=== PATIENT | female | born 1980 | race Caucasian/White ===

== ENCOUNTER 2020-08-15 10:10 | Emergency (ER) | payer SELFPAY ==
[2020-08-15 10:59] LABS: #Basophils 0.2 thou/uL (0.0-0.2); #Eosinphils 0.2 thou/uL (0.0-0.7); #Lymphocytes 2.7 thou/uL (1.20-3.40); #Monocytes 0.5 thou/uL (0.11-0.59); #Neutrophils 4.6 thou/uL (1.40-6.50); %Basophils 1.9 % (0.0-1.0); %Eosinophils 2.2 % (0.0-10.0); %Lymphocytes 33.2 % (21.0-51.0); %Monocytes 6.2 % (0.0-10.0); %Neutrophils 56.5 % (42.0-75.0); Mean Corpuscular HGB CONC 33.9 g/dL (32.0-36.0); Mean Corpuscular Hemoglobin 32.6 pg (27.0-31.0); Mean Corpuscular Volume 96.2 fL (78.0-98.0); Mean Platelet Volume 8.6 fL (7.4-10.4); Platelet Count 231 thou/uL (130-400); RBC Distribution Width 12.1 % (11.5-14.5); White Blood Cell (WBC) Count 8.2 thou/uL (4.8-10.8)
[2020-08-15 11:25] LABS: ALT (SGPT) 16 U/L (8-55); AST (SGOT) 16 U/L (5-34); Albumin 4.2 g/dL (3.5-5.0); Alkaline Phosphatase 82 U/L (40-110); Anion Gap 13 mmol/L (10-20); BUN (Urea Nitrogen) 13 mg/dL (7.0-18.7); Bilirubin, Total 0.3 mg/dL (0.2-1.2); Calc. Creatinine Clearance 0 mL/min (70-130); Carbon Dioxide 23 mmol/L (22-29); Chloride 108 mmol/L (98-107); Globulin 2.6 g/dL (2.4-3.5); Glucose 96 mg/dL (70-105); Potassium 4.1 mmol/L (3.5-5.1); Protein, Total 6.8 g/dL (6.0-8.3); Sodium 140 mmol/L (136-145)
[2020-08-15] MEDS ORDERED: Famotidine/PF 20 mg/2ml Vial ONE (11:45)
[2020-08-15] MEDS ORDERED: methylPREDNISolone Sod Succ/PF 125 MG/2 ML VIAL ONE (11:45)
[2020-08-15] MEDS ORDERED: diphenhydrAMINE 50 MG/ML VIAL ONE (11:45)
== END 2020-08-15 13:17 | disposition home or self-care (01) ==
LOC: ERS 10:10
DX: R06.02 Shortness of breath (principal); R11.0 Nausea; R07.89 Other chest pain; T80.62XA Other serum reaction due to vaccination, initial encounter; T50.Z95A Adverse effect of other vaccines and biological substances, initial encounter; E03.9 Hypothyroidism, unspecified; Z86.73 Personal history of transient ischemic attack (TIA), and cerebral infarction without residual deficits; Z79.899 Other long term (current) drug therapy
CPT/HCPCS: 36415; 71045; 80053; 84484; 85025; 93005; 94760; 96374; 96375; J1200; J2930; S0028

== ENCOUNTER 2021-09-26 11:50 | Day surgery (SDC) | payer OTHER ==
[2021-09-23 12:18] VITALS: BMI 38.2
[2021-09-26] MEDS ORDERED: Ketorolac Tromethamine 30 MG/ML VIAL ONE ×2 (12:18→16:57)
[2021-09-26] MEDS ORDERED: Acetaminophen 500 MG TAB ONE (12:18)
[2021-09-26] MEDS ORDERED: Bupivacaine 0.25% 10 ML VIAL ONE (15:27)
[2021-09-26] MEDS ORDERED: EPINEPHrine 1 MG/ML AMP ONE (15:27)
[2021-09-26] MEDS ORDERED: Midazolam HCl 2 mg/2 ml Vial ONE ×2 (16:24→16:39)
[2021-09-26] MEDS ORDERED: Lidocaine 1% w/Epinephrine 1:100K 20 ML VIAL ONE (16:32)
[2021-09-26] MEDS ORDERED: Bupivacaine PF 0.5% 30 ML VIAL ONE (16:32)
[2021-09-26] MEDS ORDERED: Ketamine 50 MG/ML (10ML VIAL) ONE (16:39)
[2021-09-26] MEDS ORDERED: Fentanyl 100 MCG/2 ML VIAL ONE (16:39)
[2021-09-26] MEDS ORDERED: HYDROmorphone 2 MG/ML VIAL ONE (16:40)
[2021-09-26] MEDS ORDERED: ceFAZolin (BATCH) 2 GM/100 ML BAG ONE (16:48)
[2021-09-26] MEDS ORDERED: ePHEDrine 50 MG/ML VIAL ONE (16:57)
[2021-09-26] MEDS ORDERED: PHENYLEPHRINE-NS 100 MCG/ML 10 ML SYRINGE ONE (16:57)
[2021-09-26] MEDS ORDERED: Succinylcholine 200 MG/10 ml SYRINGE FS ONE (16:57)
[2021-09-26] MEDS ORDERED: Glycopyrrolate 0.2 MG/ML 5 ML SYRINGE ONE (16:57)
[2021-09-26] MEDS ORDERED: Ondansetron PF 4 MG/2 ML Vial ONE (16:57)
[2021-09-26] MEDS ORDERED: Lidocaine 1% PF 5 ML VIAL ONE (16:57)
[2021-09-26] MEDS ORDERED: PROPOFOL 200 MG/20 ML VIAL ONE (16:57)
[2021-09-26] MEDS ORDERED: Rocuronium Bromide 10 MG/ML (10ML VIAL) ONE (16:57)
[2021-09-26] MEDS ORDERED: Dexamethasone 20 MG/5 ML VIAL ONE (16:57)
[2021-09-26] MEDS ORDERED: SUGAMMADEX SODIUM 200 MG/2 ML VIAL ONE (17:35)
[2021-09-26] MEDS ORDERED: HYDROcodone/Acetaminophen 5/325 mg Tablet ONE ×2 (18:46→18:47)
== END 2021-09-26 19:47 | disposition home or self-care (01) ==
LOC: SDC 11:50
PROVIDERS: ATTEND Specialist
PROC: 0FT44ZZ Resection of Gallbladder, Percutaneous Endoscopic Approach (ICD-10-PCS; principal; 2021-09-26)
DX: K80.10 Calculus of gallbladder with chronic cholecystitis without obstruction (principal); N73.6 Female pelvic peritoneal adhesions (postinfective); E03.9 Hypothyroidism, unspecified; M79.7 Fibromyalgia; E66.8 Other obesity; Z68.38 Body mass index [BMI] 38.0-38.9, adult; Z87.891 Personal history of nicotine dependence; Z79.890 Hormone replacement therapy; Z79.899 Other long term (current) drug therapy; Z88.1 Allergy status to other antibiotic agents; Z88.7 Allergy status to serum and vaccine; Z88.8 Allergy status to other drugs, medicaments and biological substances
CPT/HCPCS: 88304; C1713; J0171; J0690; J1100; J1170; J1885; J2250; J2405; J2704; J3010; J3490; S0020

== ENCOUNTER 2021-11-19 15:37 | Emergency (ER) | payer SELFPAY ==
[2021-11-19] MEDS ORDERED: levETIRAcetam 500 MG/5 ML VIAL SLOW IVP SCH (16:00)
[2021-11-19] MEDS ORDERED: levETIRAcetam 500 MG/5 ML VIAL ONE (16:08)
[2021-11-19 16:25] LABS: #Eosinphils 0.1 thou/uL (0.0-0.7); #Monocytes 0.5 thou/uL (0.11-0.59); #Neutrophils 6.3 thou/uL (1.40-6.50); %Basophils 0.3 % (0.0-1.0); %Eosinophils 0.6 % (0.0-10.0); %Lymphocytes 22.3 % (21.0-51.0); %Monocytes 5.7 % (0.0-10.0); Hemoglobin 13.9 g/dL (12.0-16.0); Mean Corpuscular HGB CONC 33.3 g/dL (32.0-36.0); Mean Corpuscular Hemoglobin 31.6 pg (27.0-31.0); Platelet Count 245 thou/uL (130-400); RBC Distribution Width 12.6 % (11.5-14.5); Red Blood Cell (RBC) Count 4.41 mill/uL (4.20-5.40); White Blood Cell (WBC) Count 8.9 thou/uL (4.8-10.8)
[2021-11-19 16:48] LABS: ALT (SGPT) 19 U/L (8-55); AST (SGOT) 16 U/L (5-34); Albumin 3.9 g/dL (3.5-5.0); Alkaline Phosphatase 112 U/L (40-110); Anion Gap 12 mmol/L (10-20); BUN (Urea Nitrogen) 7 mg/dL (7.0-18.7); Bilirubin, Total 0.4 mg/dL (0.2-1.2); Calc. Creatinine Clearance 0 mL/min (70-130); Carbon Dioxide 24 mmol/L (22-29); Chloride 105 mmol/L (98-107); Globulin 3.1 g/dL (2.4-3.5); Glucose 94 mg/dL (70-105); Potassium 3.9 mmol/L (3.5-5.1); Sodium 137 mmol/L (136-145)
[2021-11-19 16:54] LABS: BHCG - Serum Negative (NEGATIVE); Pregs Control Background? CLEAR/WHITE (CLR/WHITE); Pregs Control Bar Appear? YES (CONTROL BAR)
== END 2021-11-19 18:01 | disposition home or self-care (01) ==
LOC: ERS 15:37
DX: R56.9 Unspecified convulsions (principal); E03.9 Hypothyroidism, unspecified; Z79.899 Other long term (current) drug therapy
CPT/HCPCS: 36415; 70450; 80053; 84703; 85025; 93005; 96374; J1953

== ENCOUNTER 2023-03-22 02:26 | Emergency (ER) | payer SELFPAY ==
[2023-03-22] MEDS ORDERED: Ibuprofen 200 MG TAB ONE (03:42)
== END 2023-03-22 03:50 | disposition home or self-care (01) ==
LOC: ERS 02:26
DX: T74.21XA Adult sexual abuse, confirmed, initial encounter (principal)
CPT/HCPCS: 99284